=== PATIENT | female | born 1985 | race Caucasian/White ===

== ENCOUNTER 2019-08-17 13:17 | Emergency (ER) | payer BC ==
[~2019-08-17] VITALS: Ht 154.9 cm; Wt 63.5 kg
[~2019-08-17 13:17] MED LIST: FLEXERIL PO; IBUPROFEN 600600 M1 PO
[2019-08-17] MEDS ORDERED: PENICILLIN V P500 MG PO (14:12)
[2019-08-17] MEDS ORDERED: NORCO 5-325 TA1 EAC1 PO (14:12)
[2019-08-17 14:34] VITALS: BP 129/68
== END 2019-08-17 14:35 | disposition home or self-care (01) ==
LOC: ER 13:17
DX: K05.10 Chronic gingivitis, plaque induced (principal); K02.9 Dental caries, unspecified; F17.210 Nicotine dependence, cigarettes, uncomplicated